=== PATIENT | male | born 1960 | race Caucasian/White ===

== ENCOUNTER 2017-01-21 17:35 | Inpatient (IN) | payer MEDICARE ==
[~2017-01-21] VITALS: Ht 167.6 cm; Wt 90.7 kg
--- NOTE | ~2017-01-21 | CN ---
PATIENT NAME:QIANA ORDONEZ MEDICAL RECORD: [id number] : 58 LOCATION:. D.2125 ADMIT DATE: 01/21/17 ACCOUNT: [id number] CONSULTING PHYSICIAN: HAY ORNELAS MD REFERRING PHYSICIAN: MAYTE NELSON MD DATE OF CONSULTATION: 01/23/2017 Consultation Note Addendum CHIEF COMPLAINT: Pain. HISTORY OF PRESENT ILLNESS: The patient has a right lower extremity venous stasis cellulitis. It is rated as CEAP-6. He has had waxing and waning symptoms for years. He states it all started when he stepped on a nail. He thinks the nail went through his shoe. He does not think that any portion of the nail or shoe material is still in his foot. He has been to the wound care clinic and seen Dr. Grijalva over there. They were treating his venous stasis cellulitis and had significant improvement until this November when things began to worsen. He has a stocking type of paresthesias as well as cellulitis, which is in a stocking type distribution. He does have some varicosities on the left, but all of his symptoms are right-sided symptoms. He has some huge varicosities in the medial right thigh. There are several small punctate open ulcers thus classifying this as CEAP-6. He has lipodermatosclerosis as well as cellulitis. I noted no weeping. He has not undergone a venous reflux examination by his history. Palpation aggravates as well as walking. Nothing alleviates. Symptoms are moderate in severity. This is a consultation note addendum. For the typed portion of the consult note including the current medications, past medical and surgical history, allergies as well as social history, please see the chart. The patient was not admitted for this condition. He was admitted for exacerbation of COPD. REVIEW OF SYSTEMS: No nausea, no vomiting, no fever, no chills. Positive for shortness of breath, positive for dyspnea on exertion, positive for orthopnea. No headache. Positive for back pain. The review of systems is negative other than as is described above. PHYSICAL EXAMINATION: GENERAL: The patient does appear acutely ill. Also appears chronically ill. VITAL SIGNS: Reviewed. HEAD: External ears appear normal. EYES: Extraocular movements are intact. NECK: Trachea is midline. CHEST: No intercostal retractions. PULMONARY: Mildly labored expiratory wheezes. ABDOMEN: No peritonitis with movement. EXTREMITIES: As described above. PSYCHIATRIC: Normal affect. NEUROLOGIC: Nonfocal, no lethargy. The patient answers questions appropriately, moves all extremities well. BACK: No thoracic kyphosis. LYMPHATICS: No lymphangitic streaking of the exposed extremities. IMPRESSION: Symptomatic varicosities, right lower extremity. Venous insufficiency which is CEAP-6 involving the right lower extremity. CONSULT REPORT [id number] QIANA ORDONEZ PLAN: 1. X-ray of the right foot to determine if there is any radiopaque foreign body left from the initial injury. 2. Standing venous reflux examination on the right. 3. Unna Boots wrap of right lower extremity. I will see the patient in my office in followup after he is being dismissed home by his primary care team. TRANSINT:[id number] Voice Confirmation ID: [id number] DOCUMENT ID: [id number] HAY ORNELAS MD CC: MAYTE NELSON MD [id number] DICTATION DATE: 01/23/17 121 PICK UP: 01/23/171921 ADM IN [facility] [address] [place] [address]
[2017-01-21 18:57] LABS: BASOPHILS 0.3 % (0.0-2.0); EOSINOPHILS 2.3 % (0-7); HEMATOCRIT 42.9 % (42.0-54.0); HEMOGLOBIN 13.8 g/dL (13.5-17.5); IMMATURE GRANULOCYTES 0.3 % (0-5); LYMPHOCYTES 20.5 % (15-50); MCH 29.7 pg (26.0-34.0); MCHC 32.2 g/dL (31.0-37.0); MCV 92.3 fL (80.0-100.0); MEAN PLATELET VOLUME 10.5 fL (7.4-10.4); MONOCYTES 6.8 % (2-11); NEUTROPHILS 69.8 % (40-80); PLATELET COUNT 188 10x3/uL (130-400); RBC 4.65 10x6/uL (4.20-6.10); RDW 13.2 % (11.5-14.5); WBC 10.5 10x3/uL (4.8-10.8)
[2017-01-21 19:05] LABS: INR 1.19 (0.85-1.17)
[2017-01-21 19:06] LABS: APTT 36.6 SECONDS (22.8-39.4)
[2017-01-21 19:07] LABS: D-DIMER-QUANTITATIVE 0.63 ug/mLFEU (0.20-0.54)
[2017-01-21 19:23] LABS: ALBUMIN 3.4 g/dL (3.4-5.0); ANION GAP 11.6 mmol/L (8-16); BILIRUBIN - TOTAL 0.35 mg/dL (0.2-1.3); CALCIUM 8.7 mg/dL (8.5-10.1); CARBON DIOXIDE 29.5 mmol/L (21.0-32.0); CREATININE - SERUM 1.3 mg/dL (0.6-1.3); POTASSIUM - SERUM 4.1 mmol/L (3.5-5.1); PROTEIN - SERUM 7.7 g/dL (6.4-8.2)
--- NOTE | 2017-01-21 22:34 | NUR ---
RECIEVED REPORT FROM ARAMIS IN ER.
--- NOTE | 2017-01-21 23:56 | NUR ---
ADMISSION ASSESSMENT AND HISTORY COMPLETED. PT C/O HEADACHE. MEDICATED WITH TYLENOL 650MG BY MOUTH. PT RECIEVED INITIAL DOSE OF CLEOCIN IN ER, 2ND DOSE DUE AT 0300. REVIEWED PLAN OF CARE.
[2017-01-22] VITALS (7 sets, daily range): BP systolic 104–156; BP diastolic 65–89; Ht 167.6 cm; Wt 90.7 kg
--- NOTE | 2017-01-22 01:10 | NUR ---
PT ADMITTED TO ROOM 2124 FROM ER. ALERT/ORIENTED. ABLE TO TRANSFER FROM W/C TO BED WITH NO ASSISTANCE. ORIENTED TO ROOM. CALL LIGHT IN REACH.
--- NOTE | 2017-01-22 01:38 | NUR ---
SITTING UP ON SIDE OF BED. VOICING NO NEEDS. CPOC.
--- NOTE | 2017-01-22 03:30 | NUR ---
#2 IV CLEOCIN UP AND INFUSING.
[2017-01-22] MEDS ORDERED: ZESTRIL20 MG PO (07:52)
--- NOTE | 2017-01-22 12:21 | NUR ---
WOUND CARE CONSULT: RIGHT LOWER EXTREMITY EXCEPT FOOT IS RED AND COOL TO TOUCH. PATIENT REPORTS "NO FEELING IN THAT PART FROM ANKLE UP TO TOP OF CALF". INSIDE RIGHT THIGH ARE TWO AREAS, HEALING SORES, THAT ARE OUTLINED IN BLUE INK FROM PRIMARY NURSE. INSIDE RIGHT FOOT IS 1 HEALING SORE MARKED THE SAME. PATIENT STATES THAT WHEN HE TAKES A "HOT BATH, THER IS NOT FEELING TO THIS PART OF THE LEG". WILL CONTINUE TO FOLLOW. I REINFORECED TO HIM NOT TO PICK AT THESE AREAS AND EXPLAINED THAT EVERYONE HAS STAPH ON THEIR SKIN, ALSO ENCOURAGED FOR HIM TO STOP SMOKING. HIS RIGHT INDEX AND MIDDLE FINGER ALONG WITH HIS THUMB ARE TOBACCO STAINED.
--- NOTE | 2017-01-22 13:23 | NUR ---
ALERT AND ORIENTED X4. AMBULATING IN [place]. GAIT STEADY. A FLUTTER 69bpm ON TELEMETRY. DENIES SOB. DENIES PAIN. CONTINUE PLAN OF CARE AND SAFETY PRECAUTIONS.
--- NOTE | 2017-01-22 16:05 | NUR ---
Patient Name: QIANA ORDONEZ Admission Status: ER Accout number: [id number] Admission Date: 01-21-2017 : 1960 Admission Diagnosis: Attending: DELMER Current LOS: 1 Anticipated DC Date: TO BE DETERMINED Planned Disposition: Home Primary Insurance: MEDICARE A & B Discharge Planning Comments: * Is the patient Alert and Oriented? Yes 0 * How many steps to enter\exit or inside your home? 15-O/ 0-I 0 * PCP DR. LANDAVERDE 0 * Pharmacy [facility] 0 * Preadmission Environment Home Alone 0 * ADLs Independent 0 * Equipment None 0 * Other Equipment NO MEDICAL EQUIPMENT PROVIDER PREFERENCE 0 * List name and contact numbers for known caregivers / representatives who currently or will assist patient after discharge: TED MENENDEZ, SISTER, 0 * Community resources currently utilized None 0 * Please name any agencies selected above. NONE 0 * Additional services required to return to the preadmission environment? No 0 * Can the patient safely return to the preadmission environment? Yes 0 * Has this patient been hospitalized within the prior 30 days at any hospital? No 0 CM MET WITH PT IN ROOM TO DISCUSS DISCHARGE PLANNING AND NEEDS. PT REPORTS LIVING AT HOME INDEPENDENTLY AND ALONE. PT HAS NO MEDICAL EQUIPMENT AND NO OUTSIDE SERVICES ASSISTING IN THE HOME. CM DISCUSSED AVAILABILITY OF HOME HEALTH, REHAB SERVICES AND MEDICAL EQUIPMENT. PT DENIES DISCHARGE NEEDS, REPORTS HER SISTER WILL PICK HER UP FOR DISCHARGE HOME. PT PLANS TO DISCHARGE HOME ALONE, DENIES DISCHARGE NEEDS AT THIS TIME. Cmm Programmer: Manuel Engle
--- NOTE | 2017-01-22 18:15 | NUR ---
ALERT AND ORIENTED X4. SLEEPING IN BED. A-FLUTTER 68bpm ON TELEMETRY. NO CHANGE. PLAN FOR ECHO IN THE MORNING. CONTINUE PLAN OF CARE AND SAFETY PRECAUTIONS. RESPIRATIONS EVEN AND REGULAR.
--- NOTE | 2017-01-22 21:00 | NUR ---
IV ABT UP AND INFUSING. INITIAL DOSE OF CARDIZEM STARTED WITH PT TEACHING. CPOC.
[2017-01-23 07:45] LABS: BASOPHILS 0.2 % (0.0-2.0); EOSINOPHILS 2.6 % (0-7); HEMATOCRIT 42.9 % (42.0-54.0); HEMOGLOBIN 13.9 g/dL (13.5-17.5); IMMATURE GRANULOCYTES 0.2 % (0-5); LYMPHOCYTES 28.4 % (15-50); MCH 29.4 pg (26.0-34.0); MCHC 32.4 g/dL (31.0-37.0); MCV 90.7 fL (80.0-100.0); MEAN PLATELET VOLUME 10.6 fL (7.4-10.4); MONOCYTES 6.2 % (2-11); NEUTROPHILS 62.4 % (40-80); PLATELET COUNT 184 10x3/uL (130-400); RBC 4.73 10x6/uL (4.20-6.10); WBC 8.2 10x3/uL (4.8-10.8)
[2017-01-23 08:01] LABS: ANION GAP 10.3 mmol/L (8-16); CALCIUM 8.6 mg/dL (8.5-10.1); CARBON DIOXIDE 27.8 mmol/L (21.0-32.0); CREATININE - SERUM 1.2 mg/dL (0.6-1.3); POTASSIUM - SERUM 4.1 mmol/L (3.5-5.1)
[2017-01-23 08:37] VITALS: BP 161/94
[2017-01-23 12:32] VITALS: BP 151/95
[2017-01-23 16:07] VITALS: BP 140/83
--- NOTE | 2017-01-23 19:30 | NUR ---
ASSESSMENT COMPLETE, DENIES NEEDS AT THIS TIME. HOB FLAT, RESP EVEN AND UNLAB LEFT AC SL INTACT WITH NO R/S NOTED AT SITE. UP AD KARMEN W/O DIFF. TELEMETRY IN PLACE SHOWING HR FLUTTER PER ANALYTICS INTERN. RT LOWER LEG SWELLING AND REDNESS NOTED. ALONG WITH WELL DEVELOPED VARICOSE VEINS NOTED AT THIS TIME. CONTINUE TO MONITOR.
[2017-01-23 20:57] VITALS: BP 142/91
[2017-01-23 23:00] VITALS: BP 117/74
--- NOTE | 2017-01-24 03:10 | NUR ---
TELEMETRY IN PLACE SHOWING HR 137 FLUTTER PER DENTISTRY TEACHER. AWAKE, ALERT DENIES NEEDS AT THIS TIME. C/L IN REACH.
[2017-01-24 05:47] VITALS: BP 128/88
[2017-01-24 05:50] LABS: BASOPHILS 0 % (0.0-2.0); EOSINOPHILS 0 % (0-7); HEMOGLOBIN 14.7 g/dL (13.5-17.5); IMMATURE GRANULOCYTES 0.2 % (0-5); LYMPHOCYTES 7.2 % (15-50); MCH 30.1 pg (26.0-34.0); MCHC 33.4 g/dL (31.0-37.0); MEAN PLATELET VOLUME 10.7 fL (7.4-10.4); MONOCYTES 1.3 % (2-11); NEUTROPHILS 91.3 % (40-80); RBC 4.89 10x6/uL (4.20-6.10)
[2017-01-24 05:58] LABS: PLATELET COUNT 227 10x3/uL (130-400); WBC 13.4 10x3/uL (4.8-10.8)
[2017-01-24 06:10] LABS: ANION GAP 15.4 mmol/L (8-16); CALCIUM 8.9 mg/dL (8.5-10.1); CARBON DIOXIDE 23.9 mmol/L (21.0-32.0); CREATININE - SERUM 1.1 mg/dL (0.6-1.3); POTASSIUM - SERUM 4.3 mmol/L (3.5-5.1)
--- NOTE | 2017-01-24 07:23 | NUR ---
PT SITTING UP ON SOB DENIES NEEDS WILL CONT TO MONITOR
[2017-01-24 07:44] VITALS: BP 111/74
[2017-01-24 11:25] VITALS: BP 109/73
--- NOTE | 2017-01-24 11:52 | NUR ---
WOUND CARE CONSULT: APPLIED UNNA BOOT WITH ZINC TO RIGHT LE PER DR. ORNELAS'S ORDERS. IT IS TO BE CHANGED IN 7 DAYS. INSTRUCTED PT TO REMOVE (CUT OFF) BOOT IF HE BECOMES EXCESSIVELY SOB. CLIP TOP AND/OR BOTTOM OF UNNA BOOT IF EXCESSIVELY SWOLLEN AND TO REMOVE UNNA BOOT IF HE HAS EXCESSIVE PAIN IN THE LEG. PT VOICED HIS UNDERSTANDING.
--- NOTE | 2017-01-24 12:34 | NUR ---
PT HAS BEEN PACING THE HOSPITAL WING TODAY ASKING ABOUT DC PAPERS. JOSE PAL CAME BY AND IS DC PT TODAY BUT NO ORDERS YET. PT HAS BEEN NOTIFIED.
[2017-01-24] MEDS ORDERED: CARDIZEM30 MG PO ×2 (12:57→14:43)
[2017-01-24] MEDS ORDERED: XARELTO15 MG PO ×2 (12:57→14:43)
--- NOTE | 2017-01-24 14:52 | NUR ---
Patient Name: QIANA ORDONEZ Encounter No: [id number] : 1960 Primary Insurance: MEDICARE A & B Anticipated DC Date: 01-24-2017 Planned Disposition: Home DCP follow-up note: CM MET WITH PT IN ROOM TO DISCUSS DISCHARGE NEEDS AND PLANNING. CM DISCUSSED AVAILABILITY OF HOME HEALTH, REHAB SERVICES AND MEDICAL EQUIPMENT. PT DENIES DISCHARGE NEEDS. 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 IMPORTANT MESSAGE FROM MEDICARE PROVIDED AND EXPLAINED. Manuel Engle, CASE MANAGEMENT
--- NOTE | 2017-01-24 15:45 | NUR ---
WENT OVER DC PAPERWORK WITH PT PT VERBALIZES UNDERSTANDING. DC TELE. DC PIV WITH CATH TIP INTACT. PT WAS WHEELED OUT WITH DELIVERY COORDINATOR VIA WHEELCHAIR.
--- NOTE | 2017-01-25 10:19 | EC ---
PATIENT:QIANA ORDONEZ DATE OF SERVICE: 01/21/17 SEX: M MEDICAL RECORD: [id number] DATE OF : [birth year] LOCATION:D. D.212 AGE OF PATIENT: 56 ADMISSION DATE: 01/21/17 REFERRING PHYSICIAN: INTERPRETING PHYSICIAN: NATALYA ROSS MD ECHOCARDIOGRAM REPORT ECHO CHARGES 4 ECHO COMPLETE CLINICAL DIAGNOSIS: HTN ECHOCARDIOGRAPHIC MEASUREMENTS (adult normal given) AC root (d.<3.7cm) 3.5 LV Septum d (<1.2 cm> 1.4 Valve Excursion 2.3 LV Septum (systole) 1.7 Left Atria (s.<4.0cm> 4.6 LVPW d(<1.2cm) 1.5 RV (d.<2.3cm) 2.5 LVPW (sytole) 1.8 LV diastole(<5.6CM) 5.3 MV E-F(>70mm/sec) LV systole 3.7 LVOT Diameter 2.0 MV exc.(>10mm) Est.ejection fraction (50-75%) Pericardial Effusion N DOPPLER: LVIT A 57.0 E 117.0 LA RVSP 33.0 LVOT 90.0 AOP1/2T 654.0 Asc. Ao 126 RVOT 56.0 RA PA 72.0 AV Gradient Peak 6.3 AV Mean 3.3 AV Area 1.9 MV Gradient Peak 6.4 MV Mean 2.2 MV Area COMMENTS: Shopper'S Aide: Darcy HAYESOE Vice President Of Manufacturing:1 Dr. Ross TAPE# PACS DATE OF SERVICE: 01/23/2017 Echocardiogram FINDINGS: 1. Left ventricular chamber size is within normal limits. Left ventricular systolic function is normal. Overall ejection fraction estimated at 55%. 2. Left atrium is enlarged at 4.6 cm. Right atrium and right ventricular chamber sizes are within normal limits. 3. Valvular structures have normal structure and motion. ECHOCARDIOGRAM REPORT [id number] QIANA ORDONEZ 4. Doppler interrogation reveals mild aortic insufficiency, mild mitral regurgitation, moderate tricuspid regurgitation, no other valvular insufficiency or stenosis. Pulmonary systolic pressure is normal estimated at 33 mmHg. 5. No evidence of pericardial effusion or left ventricular thrombus. TRANSINT:[id number] Voice Confirmation ID: [id number] DOCUMENT ID: [id number] NATALYA ROSS MD at 1019 CC: [id number] DICTATION DATE: 01/23/17 1240 INCIDENT RESPONSE CONSULTANT: 01/23/17 1643 DIS IN 01/24/17 [place] [id number] [place] [address]
== END 2017-01-24 15:47 | disposition home or self-care (01) | DRG 603 ==
LOC: D.ER 17:35 → D.ICU 20:21 → D.ER 20:21 → D.M2 21:49
PROVIDERS: Nurse Practitioner Acute Care; ADMIT Emergency Medicine
DX: L03.115 Cellulitis of right lower limb (principal); F17.203 Nicotine dependence unspecified, with withdrawal; I48.92 Unspecified atrial flutter; I10 Essential (primary) hypertension; I83.91 Asymptomatic varicose veins of right lower extremity